=== PATIENT | female | born 1985 | race Caucasian/White ===

== ENCOUNTER 2018-11-03 05:10 | Emergency (ER) | payer BC ==
[2018-11-03] MEDS ORDERED: NS 0.9% 1000 ML** 1,000 ML IV ONE (06:05)
[2018-11-03] MEDS ORDERED: Ondansetron INJ* 2 MG/ML VIAL IV ONE (06:05)
--- NOTE | 2018-11-03 06:06 | ED ---
Nausea/Vomiting/Diarrhea HPI - HPI Summary HPI Summary: Pt. is a 32 y.o female who presents to the ER for nausea, abd. cramping and diarrhea that started acutely this morning. Pt. not chills. Denies sore throat, cough, urinary sxs. Pt has a hx of GERD and nephritic syndrome. Pt. states she follows with a feather mixer at [facility] and restarted prednisone 2 weeks ago. Pt. states she did have protein in u/a at recent nephro. visit but otherwise has been doing well. Pt. denies surgical hx. Pt. notes she works at [employer] so could have had a potential exposure. Sxs are moderate in severity. Pt. states abd. pain has improved since being in ED. No current modifying factors. - History of Current Complaint Chief Complaint: EDFluSymptoms Stated Complaint: "MAYBE THE STOMACHE FLU" PER PT Time Seen by Provider: 11/03/18 05:44 Hx Obtained From: Patient Pain Intensity: 7 - Allergies/Home Medications Allergies/Adverse Reactions: Allergies Allergy/AdvReac Type Severity Reaction Status Date / Time sulfamethoxazole Allergy Itching Verified 11/03/18 05:15 [From Bactrim] trimethoprim [From Bactrim] Allergy Itching Verified 11/03/18 05:15 Home Medications: Home Medications Omeprazole 20 mg PO DAILY 11/03/18 [History Confirmed 11/03/18] predniSONE [Prednisone 20 MG TAB] 60 mg PO DAILY 11/03/18 [History Confirmed 06/14] PMH/Surg Hx/FS Hx/Imm Hx Previously Healthy: Yes Infectious Disease History: Yes Infectious Disease History: Denies: Traveled Outside the [place] in Last 30 Days - Family History Known Family History: Positive: Non-Contributory - Social History Occupation: Employed Full-time Lives: With Family Alcohol Use: Rare Substance Use Type: Reports: None Smoking Status (MU): Former Smoker Review of Systems Positive: Chills. Negative: Fever Eyes: Negative ENT: Negative Cardiovascular: Negative Negative: Chest Pain Respiratory: Negative Negative: Cough Positive: Abdominal Pain, Diarrhea, Nausea. Negative: Vomiting Genitourinary: Negative Negative: burning, dysuria Musculoskeletal: Negative Skin: Negative Neurological: Negative All Other Systems Reviewed And Are Negative: Yes Physical Exam Triage Information Reviewed: Yes Vital Signs On Initial Exam: Initial Vitals Temp Pulse Resp BP Pulse Ox 98.7 F 73 16 133/88 98 11/03/18 05:12 11/03/18 05:12 11/03/18 05:12 11/03/18 05:12 11/03/18 05:12 Vital Signs Reviewed: Yes Appearance: Positive: Well-Appearing - Pt. lying in bed in NAD. SO present. Skin: Positive: Warm, Dry Head/Face: Positive: Normal Head/Face Inspection Eyes: Positive: Normal, EOMI, HELENA ENT: Positive: Other - lips are chapped Respiratory/Lung Sounds: Positive: Clear to Auscultation, Breath Sounds Present Cardiovascular: Positive: Normal, RRR Abdomen Description: Positive: Other: - Abd is soft with mild tenderness to LLQ without guarding. No pain at McBurney point.. Negative: CVA Tenderness (R), CVA Tenderness (L) Musculoskeletal: Negative: Edema Left, Edema Right Neurological: Positive: Normal, CN Intact II-III Psychiatric: Positive: Affect/Mood Appropriate Diagnostics - Vital Signs Vital Signs Temp Pulse Resp BP Pulse Ox 11/03/18 05:12 98.7 F 73 16 133/88 98 - Laboratory Result Diagrams: 11/03/18 06:30 11/03/18 06:30 Lab Statement: Any lab studies that have been ordered have been reviewed, and results considered in the medical decision making process. Naus/Vom/Diarrhea Course/Dx - Course Course Of Treatment: Pt. presenting for V/D/abd. pain. She is afebrile with stable vital signs the patient has benign abdominal exam. The patient's IV fluids and Zofran check labs and urinalysis. Suspect viral etiology. 0745: WBC elevated at 17K, suspect from prednisone. CMP shows normal renal function, ca 7.7, protein 4.0. Urinalysis is negative for infection but does show protein , no blood. Reexamination patient states she is feeling much better. She is tolerating by mouth fluids. She has no reproducible abdominal pain. We'll discharge patient home with prescription for Zofran. Suspect viral etiology. Advised close follow-up with PCP and feather mixer. Advised to return to the ER for increased pain, uncontrollable vomiting, fever or if concerned. Patient understands and agrees with plan. - Differential Dx/Diagnosis Differential Diagnoses - Female: Appendicitis, Bowel Obstruction, Diverticulitis , , Ectopic , Gastroenteritis (Viral), Gastroenteritis ( Bacterial), Vomiting, Diarrhea, Dehydration Provider Diagnosis: Viral gastroenteritis Condition At Discharge: Improved Discharge - Sign-Out/Discharge Documenting (check all that apply): Patient Departure Patient Received Moderate/Deep Sedation with Procedure: No - Discharge Plan Condition: Improved Disposition: HOME Prescriptions: Ondansetron TAB* [Zofran 4 MG Tab*] 4 mg PO Q6H PRN #12 tab PRN Reason: Nausea Patient Education Materials: Gastroenteritis (ED) Referrals: Edyta Pelayo NP [Primary Care Provider] - Additional Instructions: Schedule a close follow up appointment with your PCP and feather mixer Increase fluids Zofran as needed for nausea Return to ER for increased pain, high fever, uncontrollable vomiting or if concerned - Billing Disposition and Condition Condition: IMPROVED Disposition: Home
[2018-11-03 06:39] LABS: ABS Basophils 0.1 10^3/ul (0-0.2); ABS Eosinophils 0.2 10^3/ul (0-0.6); ABS Lymphocytes 2.8 10^3/ul (1.0-4.8); ABS Monocytes 0.8 10^3/ul (0-0.8); ABS Neutrophils 13.2 10^3/ul (1.5-7.7); ABS Nucleated RBC 0 10^3/ul; Eosinophil % 1.4 %; Hematocrit 44 % (35-47); Hemoglobin 14.6 g/dl (12.0-16.0); Lymphocyte % 16.1 %; Mean Corpuscular HGB Conc 33 g/dl (31-36); Mean Corpuscular Hemoglobin 28 pg (27-31); Mean Corpuscular Volume 85 fL (80-97); Mean Platelet Volume 6.8 fL (7.4-10.4); Nucleated Red Blood Cells % 0; Platelet Count 349 10^3/ul (150-450); Red Blood Count 5.23 10^6/ul (4.00-5.40); Red Cell Distribution Width 15 % (10.5-15); White Blood Count 17.1 10^3/ul (3.5-10.8)
[2018-11-03 07:03] LABS: ALT 19 U/L (7-52); AST 15 U/L (13-39); Albumin 2.1 g/dL (3.2-5.2); Albumin/Globulin Ratio 1.1 (1-3); Alkaline Phosphatase 46 U/L (34-104); Anion Gap 3 mmol/L (2-11); Blood Urea Nitrogen 13 mg/dL (6-24); CO2 Carbon Dioxide 29 mmol/L (22-32); Calcium 7.7 mg/dL (8.6-10.3); Chloride 107 mmol/L (101-111); EGFR Non-African American 111.6 (>60); Globulin 1.9 g/dL (2-4); Glucose 99 mg/dL (70-100); Potassium 4.1 mmol/L (3.5-5.0); Sodium 139 mmol/L (135-145)
[2018-11-03 07:10] LABS: HCG Pregnancy < 0.60 mIU/mL
[2018-11-03 07:52] LABS: Urine Appearance Clear; Urine Bacteria Absent (Absent); Urine Bilirubin Negative (Negative); Urine Blood Negative (Negative); Urine Color Yellow; Urine Glucose Negative (Negative); Urine Ketones Negative (Negative); Urine Nitrite Negative (Negative); Urine Protein 3+(>=500 mg/dL) (Negative); Urine Red Blood Cell Trace(0-2/hpf) (Absent); Urine Specific Gravity 1.013 (1.010-1.030); Urine Squamous Epithelial Cell Present (Absent); Urine Urobilinogen Negative (Negative); Urine White Blood Cell Trace(0-5/hpf) (Absent)
[2018-11-03] MEDS ORDERED: Calcium Citrate TAB* 200 MG PO ONE (08:04)
[2018-11-03 08:38] VITALS: BP 124/68
== END 2018-11-03 08:37 | disposition home or self-care (01) ==
LOC: ED 05:10
DX: A08.4 Viral intestinal infection, unspecified (principal); Z87.891 Personal history of nicotine dependence; K21.9 Gastro-esophageal reflux disease without esophagitis
CPT/HCPCS: 36415; 80053; 81003; 81015; 84702; 85025; 86140; 87086; 96361; 96374; 99282; A9270-GY; J2405

== ENCOUNTER 2018-11-20 11:19 | Emergency (ER) | payer BC ==
--- NOTE | 2018-11-20 14:43 | ED ---
Abdominal Pain/Female - HPI Summary HPI Summary: This patient is a 32 year old F presenting to ED with a chief complaint of intermittent diffuse abdominal pain since 0530 this morning. The CC is described as someones in there squeezing everything. The patient rates the pain 1/10 in severity currently but 7/10 at its worst. Symptoms aggravated by liquid PO. Symptoms alleviated by nothing. Patient reports anxiety attacks due to pain, diaphoresis, light-headedness, N/V/D, fever, chills, and dehydration. Patient denies hematochezia. Similar episodes two weeks ago with abdominal pain and N/V/D. PMHx of kidney disease and anxiety. Patient has not had any surgeries. Denies FHx of crohn's disease. 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 - History of Current Complaint Chief Complaint: EDAbdPain Stated Complaint: STOMACH PAIN, ANXIETY, PER PT Time Seen by Provider: 11/20/18 14:27 Hx Obtained From: Patient Onset/Duration: Sudden Onset, Lasting Hours, Resolved Timing: Intermittent Episode Lasting Severity Initially: Moderate - 7/10 Severity Currently: Mild - 1/10 Pain Intensity: 7 Pain Scale Used: 0-10 Numeric Location: Diffuse Radiates: No Aggravating Factor(s): Other: - PO liquids Alleviating Factor(s): Nothing Associated Signs and Symptoms: Positive: Diaphoresis, Fever, Nausea, Vomiting, Diarrhea Allergies/Adverse Reactions: Allergies Allergy/AdvReac Type Severity Reaction Status Date / Time sulfamethoxazole Allergy Itching Verified 11/20/18 11:36 [From Bactrim] trimethoprim [From Bactrim] Allergy Itching Verified 11/20/18 11:36 Home Medications: Home Medications Escitalopram * [Lexapro 5 mg (NF)] 5 mg PO DAILY 11/20/18 [History Confirmed ] PMH/Surg Hx/FS Hx/Imm Hx Endocrine/Hematology History: Denies: Hx Diabetes Cardiovascular History: Denies: Hx Coronary Artery Disease, Hx Hypertension History: Reports: Hx Renal Disease Psychiatric History: Reports: Hx Anxiety Infectious Disease History: No Infectious Disease History: Denies: Traveled Outside the [place] in Last 30 Days - Family History Known Family History: Positive: Other Family History: Denies FHx of crohn's disease - Social History Alcohol Use: Rare Substance Use Type: Reports: None Smoking Status (MU): Former Smoker Review of Systems Positive: Fever, Chills, Skin Diaphoresis Positive: Other - dehydration Positive: Abdominal Pain - diffuse, Vomiting, Diarrhea, Nausea, Other - denies hematochezia Neurological: Other - light-headedness Positive: Anxious - anxiety attacks secondary to pain All Other Systems Reviewed And Are Negative: Yes Physical Exam - Summary Physical Exam Summary: Constitutional: Well-developed, Well-nourished, Alert. (-) Distressed Skin: Warm, Dry HENT: Normocephalic; Atraumatic Eyes: Conjunctiva normal Neck: Musculoskeletal ROM normal neck. (-) JVD, (-) Stridor, (-) Tracheal deviation Cardio: Rhythm regular, rate normal, Heart sounds normal; Intact distal pulses; The pedal pulses are 2+ and symmetric. Radial pulses are 2+ and symmetric. (-) Murmur Pulmonary/Chest wall: Effort normal. (-) Respiratory distress, (-) Wheezes, (-) Rales Abd: Soft, (-) epigastric tenderness, (-) Distension, (-) Guarding, (-) Rebound Musculoskeletal: (-) Edema Lymph: (-) Cervical adenopathy Neuro: Alert, Oriented x3 Psych: Mood and affect Normal Triage Information Reviewed: Yes Vital Signs On Initial Exam: Initial Vitals Temp Pulse Resp BP Pulse Ox 97.6 F 102 16 140/99 92 11/20/18 11:32 11/20/18 11:32 11/20/18 11:32 11/20/18 11:32 11/20/18 11:32 Vital Signs Reviewed: Yes Diagnostics - Vital Signs Vital Signs Temp Pulse Resp BP Pulse Ox 11/20/18 11:32 97.6 F 102 16 140/99 92 - Laboratory Result Diagrams: 11/20/18 16:06 11/20/18 16:06 Lab Statement: Any lab studies that have been ordered have been reviewed, and results considered in the medical decision making process. Re-Evaluation - Re-Evaluation First Eval Re-Evaluation Time: 16:39 Change: Improved Comment: Patient is feeling much better. She was able to eat and drink and give us a urine sample. Discussed results and plan for discharge with the patient. Patient understands and agrees with this plan. Abdominal Pain Fem Course/Dx - Course Course Of Treatment: This patient is a 32 year old F presenting to ED with a chief complaint of intermittent diffuse abdominal pain since 0530 this morning. The patient's pain is cramping in nature that worsens after she drinks. I suspect gastroenteritis with what's most likely vasovagal responses during painful cramps. In the ED course, the patient was given fluids. The patient will be discharged with dx of gastroenteritis. Patient understands and agrees with this plan. - Diagnoses Differential Diagnosis: Positive: Other - gastroenteritis Provider Diagnoses: Gastroenteritis Discharge - Sign-Out/Discharge Documenting (check all that apply): Patient Departure - discharge Patient Received Moderate/Deep Sedation with Procedure: No - Discharge Plan Condition: Stable Disposition: HOME Prescriptions: Dicyclomine CAP* [Bentyl CAP*] 10 mg PO TID PRN #15 cap PRN Reason: Pain - Severe Ondansetron ODT TAB* [Zofran 4 MG Odt TAB*] 4 mg PO Q8H PRN #12 tab.odt PRN Reason: Nausea/Vomiting Patient Education Materials: Gastroenteritis (ED) Forms: *Work Release Referrals: Edyta Pelayo RN VASCULAR [Primary Care Provider] - (Follow up in 2-3 days.) Additional Instructions: RETURN TO THE EMERGENCY DEPARTMENT FOR CHANGING OR WORSENING SYMPTOMS - Attestation Statements Document Initiated by Scribe: Yes Documenting Scribe: Rad Smith Provider For Whom Scribe is Documenting (Include Credential): Godfrey Reagan MD Scribe Attestation: Rad Kothari, scribed for Godfrey Reagan MD on 11/20/18 at 1639. Status of Scribe Document: Ready
[2018-11-20] MEDS ORDERED: NS 0.9% 1000 ML** 1,000 ML IV.FLUID IV ONE (14:47)
[2018-11-20 15:39] VITALS: BP 141/72
[2018-11-20] MEDS ORDERED: Pantoprazole TAB * 40 MG TAB PO ONE (15:48)
[2018-11-20] MEDS ORDERED: Ondansetron ODT TAB* 4 MG PO ONE (15:48)
[2018-11-20 16:13] LABS: ABS Basophils 0.1 10^3/ul (0-0.2); ABS Eosinophils 0 10^3/ul (0-0.6); ABS Lymphocytes 0.9 10^3/ul (1.0-4.8); ABS Monocytes 0.4 10^3/ul (0-0.8); ABS Neutrophils 11.7 10^3/ul (1.5-7.7); ABS Nucleated RBC 0 10^3/ul; Eosinophil % 0.2 %; Hematocrit 44 % (33-41); Hemoglobin 15.1 g/dL (12.0-16.0); Lymphocyte % 6.9 %; Mean Corpuscular HGB Conc 34 g/dL (31-36); Mean Corpuscular Hemoglobin 29 pg (27-31); Mean Corpuscular Volume 84 fL (80-97); Nucleated Red Blood Cells % 0; Platelet Count 339 10^3/uL (150-450); Red Cell Distribution Width 15 % (10.5-15); White Blood Count 13.2 10^3/uL (3.5-10.8)
[2018-11-20 16:31] LABS: Albumin 2.3 g/dL (3.2-5.2); Albumin/Globulin Ratio 1.2 (1-3); C Reactive Protein 28.34 mg/L (<8.01); Calcium 7.2 mg/dL (8.6-10.3); EGFR African American 140.2 (>60); EGFR Non-African American 115.9 (>60); Potassium 3.9 mmol/L (3.5-5.0); Total Bilirubin 0.6 mg/dL (0.2-1.0); Total Protein 4.3 g/dL (6.4-8.9)
[2018-11-20 16:53] LABS: Urine Appearance Cloudy; Urine Bacteria Absent (Absent); Urine Bilirubin Negative (Negative); Urine Blood 1+ (Negative); Urine Color Yellow; Urine Glucose Negative (Negative); Urine Ketones Trace (Negative); Urine Nitrite Negative (Negative); Urine Protein 3+(>=500 mg/dL) (Negative); Urine Red Blood Cell Trace(0-2/hpf) (Absent); Urine Specific Gravity 1.022 (1.010-1.030); Urine Squamous Epithelial Cell Present (Absent); Urine Urobilinogen Negative (Negative); Urine White Blood Cell Trace(0-5/hpf) (Absent)
== END 2018-11-20 16:51 | disposition home or self-care (01) ==
LOC: ED 11:19
DX: K52.9 Noninfective gastroenteritis and colitis, unspecified (principal); R50.9 Fever, unspecified; E86.0 Dehydration; R11.2 Nausea with vomiting, unspecified; R19.7 Diarrhea, unspecified; Z87.891 Personal history of nicotine dependence
CPT/HCPCS: 36415; 80053; 81003; 81015; 83605; 83690; 85025; 86140; 87086; 96360; 99283; A9270-GY